=== PATIENT | male | born 1970 ===

== ENCOUNTER 2021-09-19 16:32 | Outpatient (REF) | payer OTHER, SELFPAY ==
[2021-09-19 21:22] LABS: HGB 17.6 g/dL (13.5-17.5); MCH 31.3 pg (27.0-33.0); MCHC 33.2 % (32.0-36.0); MCV 94.1 fL (80-95); MPV 9.5 fL (8.0-11.0); Platelet Count 274 10^3/uL (130-400); RBC 5.63 10^6/uL (4.36-5.78); RDW 12.4 % (11.8-14.1); RDW-SD 43.4 fL; WBC 10.25 10^3/uL (4.4-10.8)
[2021-09-19 21:33] LABS: ALT 34 U/L (16-63); AST 19 U/L (15-37); Alkaline Phosphatase 71 U/L (46-116); Anion Gap 10.5 mmol/L (3-11); BUN 11 mg/dL (7-18); Bilirubin, Total 0.5 mg/dL (0.2-1.0); CO2 25.5 mmol/L (21.0-32.0); CREATININE 0.9 mg/dL (0.70-1.30); Calcium 9.8 mg/dL (8.5-10.1); Chloride 105 mmol/L (98-107); Glucose 73 mg/dL (74-106); Potassium 4.2 mmol/L (3.5-5.1); Sodium 141 mmol/L (136-145); Total Protein 7.1 g/dL (6.4-8.2)
[2021-09-19 21:45] LABS: Hemoglobin A1C 5.9 % (<5.7)
== END 2021-09-19 16:33 | disposition home or self-care (01) ==
LOC: NCHCN 16:32
PROVIDERS: Visit Provider Family Medicine
DX: Z00.00 Encounter for general adult medical examination without abnormal findings (principal); Z13.1 Encounter for screening for diabetes mellitus; Z13.220 Encounter for screening for lipoid disorders
CPT/HCPCS: 80053; 85027; 83036

== ENCOUNTER 2021-11-07 19:02 | Outpatient (REF) | payer OTHER, SELFPAY ==
[2021-11-07 20:52] LABS: Calculated LDL 93 mg/dL (<100); Cholesterol 164 mg/dL (<200); HDL Cholesterol 51 mg/dL (40-60); Triglyceride 104 mg/dL (<150)
== END 2021-11-07 19:03 | disposition home or self-care (01) ==
LOC: NCHCN 19:02
PROVIDERS: Visit Provider Family Medicine
DX: Z00.00 Encounter for general adult medical examination without abnormal findings (principal); Z13.220 Encounter for screening for lipoid disorders
CPT/HCPCS: 80061